=== PATIENT | female | born 1985 | race Caucasian/White ===

== ENCOUNTER 2019-09-24 16:00 | Emergency (ER) | payer SELFPAY ==
[~2019-09-24] VITALS: Ht 167.6 cm; Wt 58.5 kg
[~2019-09-24 16:00] MED LIST: [UNRECOGNIZED DRUG - REMARK]
[2019-09-24 16:39] VITALS: BP 124/76
--- NOTE | 2019-09-24 16:43 | NUR ---
TO LOBBY, VSS. AWAITING BED IN ED.
--- NOTE | 2019-09-24 17:50 | NUR ---
34 Y/O F C/O VAGINAL BLEEDING X 2 WEEKS. PT STATES SHE IS ON HER PERIOD, LASTING X 2 WEEKS. PT WENT TO CLINIC YESTERDAY, STATED SHE WAS ANEMIC AND TOLD HER TO GO INTO TH ED TO BE CHECKED. PT STATES LOWER ABDOMINAL PAIN 8/10 INTERMITENT. PT POSITIONED FOR COMFORT. NKA PMH: DENIES
--- NOTE | 2019-09-24 18:03 | NUR ---
ULTRASOUND AT BEDSIDE.
--- NOTE | 2019-09-24 19:12 | NUR ---
GAVE REPORT TO PERRI ROBERTS FOR CHANGE OF SHIFT.
--- NOTE | 2019-09-24 19:12 | NUR ---
REPORT RECEIVED FROM PERRI NGUYEN.
[2019-09-24 20:21] LABS: BASOPHILS % (AUTO) 0.6 % (0.0-2.0); EOSINOPHILS # (AUTO) 0.1 K/uL (0-0.4); EOSINOPHILS % (AUTO) 0.9 % (0.0-4.0); HEMATOCRIT 30.6 % (36-48); HEMOGLOBIN 10.2 g/dL (12.0-16.0); LYMPHOCYTES # (AUTO) 2.4 K/uL (2.5-16.5); LYMPHOCYTES % (AUTO) 35.8 % (20.5-51.1); MEAN CORPUSCULAR HEMOGLOBIN 32 pg (27-31); MEAN CORPUSCULAR HGB CONC 33 g/dL (33-37); MEAN CORPUSCULAR VOLUME 96.4 fL (80-94); MONOCYTES # (AUTO) 0.5 K/uL (0.8-1.0); MONOCYTES % (AUTO) 8.2 % (1.7-9.3); NEUTROPHILS # (AUTO) 3.6 K/uL (1.8-7.7); NEUTROPHILS % (AUTO) 54.5 % (42.2-75.2); PLATELET COUNT (AUTO) 260 K/uL (140-450); RED BLOOD CELL COUNT(AUTO) 3.18 MIL/uL (4.20-5.40); RED CELL DISTRIBUTION WIDTH 14.8 % (11.6-13.7); WHITE BLOOD COUNT (AUTO) 6.6 K/uL (4.8-10.8)
--- NOTE | 2019-09-24 20:23 | NUR ---
PATIENT SITTING QUIETLY IN BED. WILL CONTINUE TO MONITOR.
[2019-09-24 20:35] VITALS: BP 121/73
--- NOTE | 2019-09-24 20:35 | NUR ---
Patient discharged with v/s stable. Written and verbal after care instructions given and explained. ERMD OKAY TO DISCHARGE PATIENT. Patient alert, oriented and verbalized understanding of instructions. Ambulatory with steady gait. All questions addressed prior to discharge. ID band removed. Patient advised to follow up with PMD. Rx of PROVERA given. Patient educated on indication of medication including possible reaction and side effects. Opportunity to ask questions provided and answered. DISCHARGED BY DR. MAI.
== END 2019-09-24 20:35 | disposition home or self-care (01) ==
LOC: MED 16:00
DX: N93.8 Other specified abnormal uterine and vaginal bleeding (principal); Z79.899 Other long term (current) drug therapy
CPT/HCPCS: 36415; 76856; 81002; 81025; 85025; 99284; Q0092